=== PATIENT | female | born 1985 | race Caucasian/White ===

== ENCOUNTER → 2021-01-21 | Outpatient (CLI) | payer MEDICAID ==
[~2021-01-21] MED LIST: ARIP5TAB13 PO; DEXT20TA2 PO; GADOTERATE 7.5 MMOL/15ML VIAL. IVP ONE; PREG50CA91 PO; VENL150C6 PO
--- NOTE | 2021-01-22 09:18 | KCIC ---
EXAMINATION: MRI pelvis without and with IV contrast. INDICATION: Pelvic mass. TECHNIQUE: Multiplanar multisequence MRI of the abdomen and pelvis performed without and with IV cont rast. COMPARISON: Ultrasound pelvis dated 12/20/2020. CT abdomen and pelvis dated 12/20/2020. FINDINGS: UTERUS: Anteverted, anteflexed measures 7.7 x 4.6 x 6.3 cm. Mild diffuse heterogeneous enhancement of the mercedes metrium. There is a 4.8 x 3.3 cm lobulated hypoenhancing, T2 hypointense mass exophytic from the left anterior uterine fundus. No corresponding diffusion restriction. This lesion is causing mild mass ef fect upon the urinary bladder. Endometrium measures 6 mm in thickness, within normal limits. Junction al zone is not thickened. Nabothian cysts. Cervix and vagina are unremarkable. OVARIES: Left ovary measures 3.7 x 2.3 x 2.3 cm. Right ovary measures 4.6 x 2.5 x 2.7 cm. They demons trate follicular changes. OTHER: Underdistended urinary bladder which limits evaluation. No lymphadenopathy in the pelvis. No ascites. Patent iliac vessels. No suspicious osseous lesion. IMPRESSION: FIGO type 7 subserosal pedunculated 4.8 cm fibroid, exophytic from the left uterine fundus. Electronically signed by: Sonia Plummer MD (01/22/2021 9:16 AM) [facility]
== END ==
LOC: KCIC MRI 12:26
PROVIDERS: ATTEND Family Medicine
DX: D25.9 Leiomyoma of uterus, unspecified (principal); R19.00 Intra-abdominal and pelvic swelling, mass and lump, unspecified site; N88.8 Other specified noninflammatory disorders of cervix uteri
CPT/HCPCS: 72197; A9575